=== PATIENT | male | born 1965 | race Caucasian/White ===

== ENCOUNTER 2019-09-28 18:49 | Observation (INO) ==
[2019-09-28] MEDS ORDERED: SODIUM CHLORIDE 0.9% 1000ML 2,000 ML IV ONE (19:03)
--- NOTE | 2019-09-28 19:19 | Emergency Department Note ---
Impression & Plan Appendicitis, Abdominal pain, Leukocytosis ED Provider Note NAME: JAMIE CORDOVA AGE: 53 SEX: M : 1965 ARRIVES VIA: Walk-In INFORMANT: Patient ED PROVIDER(S): Joseph Hogue DO CHIEF COMPLAINT: Right lower quadrant abdominal pain HPI: Patient is a 53-year-old male with a past medical history of high cholesterol that presents the ER for right lower quadrant abdominal pain. Pain started last night at 12 AM. He notes it stays in the right lower quadrant and radiates a little bit posteriorly. Currently describes the pain as sharp and stabbing and 9 out of 10. No other exacerbating or remitting factors. Patient has never had this before. No previous abdominal surgeries. Denies any dysuria urgency or frequency. Patient notes that over a week ago he had some right shoulder pain when he woke up but it resolved with moving his right shoulder. ROS: See above HPI for pertinent positives & negatives. A total of 10 systems reviewed and were otherwise negative. PAST MEDICAL HISTORY:See Below PAST SURGICAL HISTORY:See Below FAMILY HISTORY:See Below SOCIAL HISTORY:See Below HOME MEDICATIONS:See Below ALLERGIES:See Below VITALS:See Below PHYSICAL EXAMINATION: GENERAL: Sitting up in bed, alert, well appearing, well nourished, no distress, non-toxic EYE EXAM: normal conjunctiva. OROPHARYNX: no exudate, no erythema, lips, buccal mucosa, and tongue normal and mucous membranes are moist NECK: supple, no nuchal rigidity, no adenopathy, non-tender LUNGS: Clear to auscultation. Normal chest wall mechanics HEART: no murmurs, S1 normal and S2 normal ABDOMEN: abdomen soft, tender in right lower quadrant, normo-active bowel sounds, no masses, no rebound or guarding. BACK: Back is symmetrical on inspection and there is no deformity, no midline tenderness, no CVA tenderness. SKIN: no rashes and no bruising UPPER EXTREMITIES: upper extremities are grossly normal. LOWER EXTREMITIES: No pitting edema. NEURO EXAM: Normal sensorium, cranial nerves II-XII grossly intact, normal speech, no gross weakness of arms, no gross weakness of legs. MEDICAL DECISION MAKING: Patient is a 53-year-old male that presents the ER for right lower quadrant pain that has been present for the past 24 hours. Not been eating and drinking as much as usual. On exam he is acutely tender in the right lower quadrant. IV was established blood work was obtained and shows mild leukocytosis 12,000. No significant anemia. BMP with mild hypokalemia. LFTs bilirubin and troponin was negative. Lipase unremarkable. UA was negative. CT abdomen pelvis shows acute appendicitis. Patient was given IV fluids as well as cefoxitin 2 g IV. Discussed with general surgery and patient was admitted and taken to the OR for acute appendicitis. Triage Nursing notes reviewed. Prior medical records reviewed Vital Signs: reviewed and remarkable for tachycardia Differential diagnosis: Differential diagnoses includes but is not limited to gastritis, peptic ulcer disease, GERD, gallbladder disease, pancreatitis, small bowel obstruction, acute coronary syndrome, pericarditis, ischemic bowel, irritable bowel disease, irritable bowel syndrome, appendicitis, diverticulitis, malignancy, hernia, urinary tract infection, torsion, perforation, trauma, infectious. ER treatment provided: See below Diagnostics interpreted by me: ECG: Sinus rhythm rate 85 Normal axis No PVCs Normal QTC Cardiac Monitoring: An order was placed for continuous cardiac monitoring. The monitor shows a rate of 93 with sinus rhythm. Laboratory studies: As stated above and show below. Imaging studies: CT abdomen pelvis shows acute appendicitis. Consultation(s): Discussed with general surgery. ED COURSE: Procedures: none Critical Care: None Past Med/Surg History Medical History Morbid obesity Surgical History S/P inguinal hernia repair Social History Feels Safe at Home: Yes Smoking Status: Never smoker Allergies Allergies Allergy/AdvReac Type Severity Reaction Status Date / Time No Known Allergies Allergy Unknown ` Verified 09/28/19 19:20 Home Meds Home Medications Medication Instructions Recorded Confirmed No Known Home Medications 09/28/19 09/28/19 Results & Data (ED) Vital Signs Vital Signs - 24 hr 09/28/19 18:50 09/28/19 20:00 09/28/19 21:12 Temperature 37 C Temperature Source Oral Pulse Rate 105 H 85 Pulse Rate [Apical] 65 Respiratory Rate 19 18 20 Respiratory Depth Normal Blood Pressure 112/71 155/101 H Blood Pressure [Left Arm] 140/86 Blood Pressure Mean 84 Blood Pressure Mean [Left Arm] 104 Blood Pressure Position Sitting Pulse Oximetry 94 96 95 Oxygen Delivery Method Room Air Room Air Sepsis Recent Fever Within 48 Hours No Sepsis Action Taken by Nursing No Action Required Laboratory Data Result diagrams: 09/28/19 19:27 09/28/19 19:27 Lab Results 09/28/19 09/28/19 09/28/19 Range/Units 19:20 19:27 19:27 WBC 12.94 H (4.8-10.8) K/uL RBC 5.11 (4.7-6.1) M/uL Hgb 16.0 (14.0-18.0) g/dL Hct 45.9 (42-52) % MCV 89.8 (80-100) fL MCH 31.3 (25-34) pg MCHC 34.9 (32-36) g/dL RDW Std Deviation 42.6 (36.4-46.3) fL RDW Coeff of Loyd 13.0 (11.5-14.5) % Plt Count 228 (130-400) K/uL MPV 9.9 (7.4-10.4) fL Immature Gran % (Auto) 0.3 % Neut % (Auto) 67.5 % Lymph % (Auto) 19.9 % [place] % (Auto) 11.7 % Eos % (Auto) 0.4 % Baso % (Auto) 0.2 % Immature Gran # (Auto) 0.04 H (0.00-0.02) K/uL Neut # (Auto) 8.74 H (1.4-6.5) K/uL Lymph # (Auto) 2.57 (1.2-3.4) K/uL [place] # (Auto) 1.51 H (0.11-0.59) K/uL Eos # (Auto) 0.05 (0-0.5) K/uL Baso # (Auto) 0.03 (0-0.2) K/uL Sodium 136 (136-145) mmol/L Potassium 3.0 L (3.5-5.1) mmol/L Chloride 101 (98-107) mmol/L Carbon Dioxide 28 (21-32) mmol/L Anion Gap 7.0 (3-11) BUN 13 (7-18) mg/dl Creatinine 0.99 (0.6-1.4) mg/dl Est Cr Clr Drug Dosing 109.3 ml/min Est GFR ( Amer) 99.0 Est GFR (Non-Af Amer) 85.4 BUN/Creatinine Ratio 12.7 (10-20) Glucose 122 H (70-99) mg/dl Calcium 9.0 (8.5-10.1) mg/dl Total Bilirubin 0.9 (0.2-1) mg/dl AST 16 (15-37) U/L ALT 32 (12-78) U/L Alkaline Phosphatase 74 (45-117) U/L Troponin I (0-0.045) ng/ml Total Protein 7.8 (6.4-8.2) gm/dl Albumin 4.0 (3.4-5.0) gm/dl Globulin 3.8 (2.5-4.0) gm/dl Albumin/Globulin Ratio 1.1 (0.9-2) Lipase 99 (73-393) U/L Urine Color Dark Yellow Urine Appearance Clear (Clear) Urine pH 5.0 (4.5-7.5) Ur Specific [place] 1.030 (1.000-1.030) Urine Protein 1+ H (Negative) Urine Glucose (UA) Negative (Negative) Urine Ketones Trace H (Negative) Urine Blood Negative (Negative) Urine Nitrite Negative (Negative) Urine Bilirubin Negative (Negative) Urine Urobilinogen Negative (Negative) Ur Leukocyte Esterase Negative (Negative) Urine WBC (Auto) 1-5 (0-5) /hpf Urine RBC (Auto) 0-4 (0-4) /hpf U Hyaline Cast (Auto) 1-5 (0-5) /lpf U Epithel Cells (Auto) 5-10 H (0-5) /lpf Urine Bacteria (Auto) Negative (Negative) 09/28/19 Range/Units 19:27 WBC (4.8-10.8) K/uL RBC (4.7-6.1) M/uL Hgb (14.0-18.0) g/dL Hct (42-52) % MCV (80-100) fL MCH (25-34) pg MCHC (32-36) g/dL RDW Std Deviation (36.4-46.3) fL RDW Coeff of Loyd (11.5-14.5) % Plt Count (130-400) K/uL MPV (7.4-10.4) fL Immature Gran % (Auto) % Neut % (Auto) % Lymph % (Auto) % [place] % (Auto) % Eos % (Auto) % Baso % (Auto) % Immature Gran # (Auto) (0.00-0.02) K/uL Neut # (Auto) (1.4-6.5) K/uL Lymph # (Auto) (1.2-3.4) K/uL [place] # (Auto) (0.11-0.59) K/uL Eos # (Auto) (0-0.5) K/uL Baso # (Auto) (0-0.2) K/uL Sodium (136-145) mmol/L Potassium (3.5-5.1) mmol/L Chloride (98-107) mmol/L Carbon Dioxide (21-32) mmol/L Anion Gap (3-11) BUN (7-18) mg/dl Creatinine (0.6-1.4) mg/dl Est Cr Clr Drug Dosing ml/min Est GFR ( Amer) Est GFR (Non-Af Amer) BUN/Creatinine Ratio (10-20) Glucose (70-99) mg/dl Calcium (8.5-10.1) mg/dl Total Bilirubin (0.2-1) mg/dl AST (15-37) U/L ALT (12-78) U/L Alkaline Phosphatase (45-117) U/L Troponin I < 0.015 (0-0.045) ng/ml Total Protein (6.4-8.2) gm/dl Albumin (3.4-5.0) gm/dl Globulin (2.5-4.0) gm/dl Albumin/Globulin Ratio (0.9-2) Lipase (73-393) U/L Urine Color Urine Appearance (Clear) Urine pH (4.5-7.5) Ur Specific [place] (1.000-1.030) Urine Protein (Negative) Urine Glucose (UA) (Negative) Urine Ketones (Negative) Urine Blood (Negative) Urine Nitrite (Negative) Urine Bilirubin (Negative) Urine Urobilinogen (Negative) Ur Leukocyte Esterase (Negative) Urine WBC (Auto) (0-5) /hpf Urine RBC (Auto) (0-4) /hpf U Hyaline Cast (Auto) (0-5) /lpf U Epithel Cells (Auto) (0-5) /lpf Urine Bacteria (Auto) (Negative) Administered Medications Ioversol (Optiray 320 100ml) 93 ml IV ONCE PRN PRN Reason: Interaction Checking Stop: 10/02/19 20:14 Last Admin: 09/28/19 20:16 Dose: 93 ml Documented by: [id number] Discontinued Medications Sodium Chloride (Nss 1000ml) 2,000 mls @ 999 mls/hr IV .Q2H1M ONE Stop: 09/28/19 21:03 Last Admin: 09/28/19 19:32 Dose: 999 mls/hr Documented by: [id number] Cefoxitin Sodium (Mefoxin) 2,000 mg in 60 mls @ 100 mls/hr IV NOW STA Stop: 09/28/19 21:20 Last Admin: 09/28/19 20:52 Dose: 100 mls/hr Documented by: [id number] Discharge Plan Visit Data Chief Complaint: Hip Pain Stated Complaint: PAINS IN RT SIDE ED Provider: Joseph Hogue Discharge Problem: Appendicitis, Abdominal pain, Leukocytosis Discharge Instructions Interventions: ED Discharge Assessment Last Done: 09/28/19 21:12 Forms Stand Alone Forms: Cruise Compare Prescriptions Prescriptions: No Action No Known Home Medications RF: 0 Referrals Referrals: Wolf Garduno [Primary Care Provider] - Discharge Problem: Appendicitis Qualifiers: Appendicitis type: acute appendicitis Acute appendicitis type: unspecified acute appendicitis type Qualified Code(s): K35.80 - Unspecified acute appendicitis Abdominal pain Qualifiers: Abdominal location: unspecified location Qualified Code(s): R10.9 - Unspecified abdominal pain Leukocytosis Qualifiers: Leukocytosis type: unspecified Qualified Code(s): D72.829 - Elevated white blood cell count, unspecified
[2019-09-28 19:44] LABS: Basophils # (auto) 0.03 K/uL (0-0.2); Basophils % (auto) 0.2 %; Eosinophils # (auto) 0.05 K/uL (0-0.5); Eosinophils % (auto) 0.4 %; Hematocrit (blood only) 45.9 % (42-52); Immature Granulocytes # (auto) 0.04 K/uL (0.00-0.02); Immature Granulocytes % (auto) 0.3 %; Lymphocytes # (auto) 2.57 K/uL (1.2-3.4); Lymphocytes % (auto) 19.9 %; Mean Corpuscular Hemoglobin 31.3 pg (25-34); Mean Corpuscular Hgb Conc 34.9 g/dL (32-36); Mean Corpuscular Volume 89.8 fL (80-100); Mean Platelet Volume 9.9 fL (7.4-10.4); Monocytes # (auto) 1.51 K/uL (0.11-0.59); Monocytes % (auto) 11.7 %; Neutrophils # (auto) 8.74 K/uL (1.4-6.5); Neutrophils % (auto) 67.5 %; Platelet Count 228 K/uL (130-400); RDW Standard Deviation 42.6 fL (36.4-46.3); Red Blood Count 5.11 M/uL (4.7-6.1); White Blood Count 12.94 K/uL (4.8-10.8)
[2019-09-28 19:46] LABS: Appearance Urine Clear (Clear); Bacteria Urine Automated Negative (Negative); Blood Urine Negative (Negative); Color Urine Dark Yellow; Glucose Urine UA Negative (Negative); Ketones Urine Trace (Negative); Leukocyte Esterase Urine Negative (Negative); Nitrite Urine Negative (Negative); Protein Urine 1+ (Negative); RBC Urine Automated 0-4 /hpf (0-4); Urobilinogen Urine Negative (Negative)
[2019-09-28 20:00] LABS: BUN Creatinine Ratio 12.7 (10-20); Creatinine Clr Calc Pharmacy 109.3 ml/min; Est GFR (Non-African American) 85.4
[2019-09-28 20:03] LABS: Albumin Globulin Ratio 1.1 (0.9-2); Bilirubin,Total 0.9 mg/dl (0.2-1); Globulin 3.8 gm/dl (2.5-4.0); Total Protein 7.8 gm/dl (6.4-8.2)
[2019-09-28 20:03] LABS: Bilirubin Urine Negative (Negative); Ictotest Urine Negative (Negative)
[2019-09-28] MEDS ORDERED: IOVERSOL 100ml IV PRN (20:15)
--- NOTE | 2019-09-28 20:42 | CT Scan Report ---
CT OF THE ABDOMEN AND PELVIS WITH CONTRAST CLINICAL HISTORY: Right lower quadrant abdominal pain. COMPARISON STUDY: Right inguinal ultrasound February 20, 2015. TECHNIQUE: Following IV administration of 93 mL of Optiray-320, axial images of the abdomen and pelvi s were obtained from the lung bases to the proximal femurs. Images were reviewed in the axial, sagitt al, and coronal planes. IV contrast was administered without complication. Automated exposure contro l was utilized for the study. A dose lowering technique was utilized adhering to the principles of A RUTH. CT DOSE: 1870.14 mGy.cm FINDINGS: Subpleural opacities within the lower lungs reflect atelectasis. There is probable fatty in filtration of the liver. A 1.1 cm right hepatic lobe cyst is noted. The spleen, adrenal glands and pa ncreas are normal. There is no biliary or pancreatic ductal dilatation. There is no peripancreatic or pericholecystic infiltration. No pneumatosis, free air or portal venous gas is present. Incidental n ote is made of a left sided IVC. Major vasculature is patent. There is no evidence for a bowel obstru ction. The appendix is dilated, measuring 1.2 cm in caliber. There is moderate periappendiceal infilt ration. No free air or abscess is present. The appendix is located posterior to the ascending colon, within the mid abdomen. The tip positioned adjacent to the inferior right hepatic lobe. A fat contain ing umbilical hernia is noted. Right inguinal hernia repair with mesh is present. Colonic diverticulo sis is noted without evidence for acute diverticulitis. There is no hydronephrosis. There are no susp icious osseous lesions. IMPRESSION: 1. Findings consistent with acute appendicitis. Moderate periappendiceal infiltration. No free air or abscess. Appendix located within the right mid abdomen, posterior to the ascending colon and adjacen t to the inferior right hepatic lobe. 2. Fat-containing umbilical hernia. 3. Colonic diverticulosis without evidence for acute diverticulitis. 4. Probable fatty infiltration of the liver. ACT 112: Negative or not required by law. Electronically signed by: Min Duran M.D. 09/28/2019 8:41 PM
[2019-09-28] MEDS ORDERED: cefOXitin 2,000 MG/60 ML BAG IV STA (20:45)
[2019-09-28] MEDS ORDERED: BUPIVACAINE/EPINEPHRINE 0.5% MPF 1:200,000 10 ML VIAL ONE (20:57)
[2019-09-28] MEDS ORDERED: ONDANSETRON INJ 2 MG/ML 2 ML VIAL IV PRN ×2 (20:59→21:49)
[2019-09-28] MEDS ORDERED: ePHEDrine sulfate 50 MG/ML AMP IV PRN (20:59)
[2019-09-28] MEDS ORDERED: fentaNYL citrate 100 MCG/2 ML VIAL IV PRN (20:59)
[2019-09-28] MEDS ORDERED: ATROPINE SULFATE 0.1 MG/ML 10ML SYR IV PRN (20:59)
--- NOTE | 2019-09-28 21:30 | Anesthesiology Consultation ---
Date of Service September 28, 2019 Assessment & Plan (1) Encounter for pre-operative examination: Chart Review Chart Review: Acceptable Risk for Surgery Consults Requested none ASA [id number] Proposed Anesthesia Anesthesia Type: General Risk / Benefits Reviewed With: PT / POA / Parent / Guardian, Accepts Plan and Informed Consent Obtained History Surgery Operation Date: 09/28/19 21:30 Proposed Procedures p Laparoscopic Appendectomy - Krzysztof Stevenson MD Height/Weight Height: 5 ft 9 in Weight: 123 kg Allergies Allergy/AdvReac Type Severity Reaction Status Date / Time No Known Allergies Allergy Unknown ` Verified 09/28/19 19:20 Medications Home Medications Medication Instructions Recorded Confirmed Last Taken No Known Home Medications 09/28/19 09/28/19 Unknown Active Medications Generic Name Dose Route Start Last Admin Trade Name Freq PRN Reason Stop Dose Admin Ioversol 93 ml 09/28/19 20:15 09/28/19 20:16 Optiray 320 100ml IV 10/02/19 20:14 93 ml ONCE PRN Administration Interaction Checking NPO Date Last Intake of Fluids: 09/28/19 Time Last Intake of Fluids: 16:30 Date Last Intake of Solids: 09/28/19 Time Last Intake of Solids: 14:00 Past Medical History Medical History Morbid obesity Exercise / Class Metabolic Activity II 4-5 Yardwork/Stairs/Walk up hill Past Surgical History Surgical History S/P inguinal hernia repair Past Anesthesia History No Hx of Anesthesia Complications and No Family Hx of Anesthesia Complications History of PONV No Hx of PONV and No Hx of Motion Sickness Social History Smoking Status: Never smoker Physical Exam Vital Signs Last Vital Signs Temp 98.6 F 09/28/19 18:50 Pulse 85 09/28/19 21:12 Resp 20 09/28/19 21:12 BP 155/101 H 09/28/19 21:12 Pulse Ox 95 09/28/19 21:12 ENMT Mouth: no dentition abnormality Thyromental Distance: > or= 3.5 Finger Breadths Mallampati Class: I Neck normal visual inspection Respiratory normal respiratory effort Auscultation: lungs clear to auscultation bilaterally Cardiovascular Rate/Rhythm: regular rate and regular rhythm Testing Laboratory Results 09/28/19 19:27 09/28/19 19:27 Urine Color Dark Yellow 09/28/19 19:20 Urine Appearance Clear (Clear) 09/28/19 19:20 Urine pH 5.0 (4.5-7.5) 09/28/19 19:20 Ur Specific [place] 1.030 (1.000-1.030) 09/28/19 19:20 Urine Protein 1+ (Negative) H 09/28/19 19:20 Urine Glucose (UA) Negative (Negative) 09/28/19 19:20 Urine Ketones Trace (Negative) H 09/28/19 19:20 Urine Nitrite Negative (Negative) 09/28/19 19:20 Ur Leukocyte Esterase Negative (Negative) 09/28/19 19:20 Urine WBC (Auto) 1-5 /hpf (0-5) 09/28/19 19:20 Urine RBC (Auto) 0-4 /hpf (0-4) 09/28/19 19:20 U Hyaline Cast (Auto) 1-5 /lpf (0-5) 09/28/19 19:20 U Epithel Cells (Auto) 5-10 /lpf (0-5) H 09/28/19 19:20 Urine Bacteria (Auto) Negative (Negative) 09/28/19 19:20
--- NOTE | 2019-09-28 21:31 | History & Physical Report ---
Date of Service September 28, 2019 Assessment & Plan (1) Appendicitis: IV mefoxin IVF NPO to OR for lap appendectomy Present on Admission?: Yes History of Present Illness Primary Care Provider: Wolf Garduno This is a 53-year-old male with right lower quadrant abdominal pain since last night. His pain started last night at 12 AM with nausea but no vomiting. He notes it stays in the right lower quadrant and radiates a little bit posteriorly. The pain as sharp and stabbing. No chnage in bowel habits. Previous hernia repair and denies any dysuria, urgency, fevers, chills or frequency. Allergies Allergy/AdvReac Type Severity Reaction Status Date / Time No Known Allergies Allergy Unknown ` Verified 09/28/19 19:20 Home Medications Home Medications Medication Instructions Recorded Confirmed Type No Known Home Medications 09/28/19 09/28/19 History Past Med/Surg History Medical History (Updated 09/28/19 @ 21:33 by Krzysztof Stevenson MD) Morbid obesity Surgical History (Updated 09/28/19 @ 21:27 by Edwin Henriquez DO) S/P inguinal hernia repair Social History Feels Safe at Home: Yes Smoking Status: Never smoker Review of Systems no fever and no chills no problem reported no cough and no dyspnea no chest pain + abdominal pain and + nausea; no vomiting no dysuria and no difficulty urinating no back pain and no neck pain no rash no problem reported no problem reported no problem reported no problem reported Physical Exam Constitutional: well developed and well nourished Neck: trachea midline; neck nontender Respiratory: normal respiratory effort; no respiratory distress and no labored breathing Cardiovascular: Rate/Rhythm: regular rate and regular rhythm Gastrointestinal (Abdomen): Inspection/Auscultation: abdomen normal to inspection; + abnormal bowel sounds Percussion/Palpation: + abdomen tender, + guarding and + hernia (umbilical); abdomen not rigid ASA Classification ASA ASA2E Results & Data Vital Signs (Past 12 Hours) Vital Signs Temp Pulse Pulse Resp BP BP Pulse Ox 09/28/19 21:12 85 20 155/101 H 95 09/28/19 20:00 65 18 140/86 96 09/28/19 18:50 37 C 105 H 19 112/[address] OF THE ABDOMEN AND PELVIS WITH CONTRAST CLINICAL HISTORY: Right lower quadrant abdominal pain. COMPARISON STUDY: Right inguinal ultrasound February 20, 2015. TECHNIQUE: Following IV administration of 93 mL of Optiray-320, axial images of the abdomen and pelvis were obtained from the lung bases to the proximal femurs. Images were reviewed in the axial, sagittal, and coronal planes. IV contrast was administered without complication. Automated exposure control was utilized for the study. A dose lowering technique was utilized adhering to the principles of ALARA. CT DOSE: 1870.14 mGy.cm FINDINGS: Subpleural opacities within the lower lungs reflect atelectasis. There is probable fatty infiltration of the liver. A 1.1 cm right hepatic lobe cyst is noted. The spleen, adrenal glands and pancreas are normal. There is no biliary or pancreatic ductal dilatation. There is no peripancreatic or pericholecystic infiltration. No pneumatosis, free air or portal venous gas is present. Incidental note is made of a left sided IVC. Major vasculature is patent. There is no evidence for a bowel obstruction. The appendix is dilated, measuring 1.2 cm in caliber. There is moderate periappendiceal infiltration. No free air or abscess is present. The appendix is located posterior to the ascending colon, within the mid abdomen. The tip positioned adjacent to the inferior right hepatic lobe. A fat containing umbilical hernia is noted. Right inguinal hernia repair with mesh is present. Colonic diverticulosis is noted without evidence for acute diverticulitis. There is no hydronephrosis. There are no suspicious osseous lesions. IMPRESSION: 1. Findings consistent with acute appendicitis. Moderate periappendiceal infiltration. No free air or abscess. Appendix located within the right mid abdomen, posterior to the ascending colon and adjacent to the inferior right hepatic lobe. 2. Fat-containing umbilical hernia. 3. Colonic diverticulosis without evidence for acute diverticulitis. 4. Probable fatty infiltration of the liver. Code Status & VTE Plan Code Status Full VTE Prophylaxis Plan VTE Prophylaxis will be ordered: Yes
[2019-09-28] MEDS ORDERED: fentaNYL citrate 100 MCG/2 ML VIAL ONE ×3 (21:38→22:20)
[2019-09-28] MEDS ORDERED: MoRPHine SULFATE 2 MG/ML CARP IV PRN (21:49)
[2019-09-28] MEDS ORDERED: MoRPHine SULFATE 4 MG/ML 1 ML CARP\\VIAL IV PRN (21:49)
[2019-09-28] MEDS ORDERED: OXYCODONE/ACETAMINOPHEN 5mg/325mg TAB PO PRN (21:49)
[2019-09-28] MEDS ORDERED: IBUPROFEN 200 MG TAB PO PRN (21:49)
[2019-09-28] MEDS ORDERED: MoRPHine SULFATE 10 MG/ML CARP/VIAL IV PRN (21:49)
[2019-09-28] MEDS ORDERED: PROMETHAZINE HCL 25 MG in SODIUM CHLORIDE 0.9% 50 ML IV PRN (21:49)
[2019-09-28] MEDS ORDERED: ACETAMINOPHEN 325 MG TAB PO PRN (21:49)
[2019-09-28] MEDS ORDERED: PROPOFOL IV EMULSION 10 MG/ML 20 ML VIAL IV ONE (22:10)
[2019-09-28] MEDS ORDERED: LIDOCAINE HCL 2% 2 ML VIAL/AMP(20MG/ML) INFIL ONE (22:10)
[2019-09-28] MEDS ORDERED: ONDANSETRON INJ 2 MG/ML 2 ML VIAL ONE (22:10)
[2019-09-28] MEDS ORDERED: SUCCINYLCHOLINE CHLORIDE 20 MG/ML 10 ML VIAL ONE (22:10)
--- NOTE | 2019-09-28 23:05 | Post Operative Brief Note ---
Immediate Post Op Note v1 Date of Surgery September 28, 2019 Pre & Post Diagnosis Operation Date: 09/28/19 21:30 Pre-Op Diagnosis: Acute Appendicitis Post-Op Diagnosis: Acute Appendicitis with Phlegmon I identified the patient and participated in the time-out.: Yes Procedure Operation Date: 09/28/19 21:30 Actual Procedures p Laparoscopic Appendectomy(Not Applicable) - Krzysztof Stevenson MD Surgeon Krzysztof Stevenson MD [place] none Estimated Blood Loss 70 Findings Consistent with Post-Op Diagnosis Drains Adam Drain (19fr with 100cc bulb; midline lower quadrant.)
[2019-09-28] MEDS ORDERED: ROCURONIUM BROMIDE 10 MG/ML 5 ML VIAL ONE (23:20)
--- NOTE | 2019-09-28 23:38 | Anesthesiology Progress Note ---
Date of Service September 28, 2019 Anesthesia Post Procedure Vital Signs Vital Signs: Temp Pulse Pulse Resp BP BP Pulse Ox 09/28/19 21:12 85 20 155/101 H 95 09/28/19 20:00 65 18 140/86 96 09/28/19 18:50 98.6 F 105 H 19 112/71 94 Pain Intensity Abdomen: Pain Intensity: 8 Transfer of Care Handoff Completed per policy Notes Mental Status: alert / awake / arousable and participated in evaluation Patient Amnestic to Procedure: Yes Nausea / Vomiting: adequately controlled Pain: adequately controlled Airway Patency, RR, SpO2: stable & adequate BP & HR: stable & adequate Hydration State: stable & adequate Anesthetic Complications: no major complications apparent and Pt Satisfied with anesthetic care
[2019-09-29] MEDS: LACTATED RINGER'S 1,000 ML IV SCH ×3 (00:51→17:45)
--- NOTE | 2019-09-29 01:43 | Operative Report (OR) ---
DATE OF OPERATION: 09/28/2019 PREOPERATIVE DIAGNOSIS: Acute appendicitis. POSTOPERATIVE DIAGNOSIS: Acute appendicitis with appendiceal phlegmon. PROCEDURE PERFORMED: Laparoscopic appendectomy. SURGEON: Krzysztof Stevenson MD [employer] C[employer]TING MACHINE OPERATOR: None. ESTIMATED BLOOD LOSS: 70 mL. ANESTHESIA: General endotracheal with 0.5% Marcaine with epinephrine local. DRAINS: Adam drain left in the right lower quadrant. INDICATION FOR PROCEDURE: This is a 53-year-old white male who came in with acute abdominal pain. Had a CT scan consistent with acute appendicitis. He had tenderness in his right lower quadrant. He was begun on IV Mefoxin and consented for laparoscopic appendectomy. SPECIMENS: Appendix sent to pathology. DESCRIPTION OF PROCEDURE: The patient was taken to the OR and underwent excellent endotracheal anesthesia under the new COVID protocol. His abdomen was prepped and draped in normal sterile fashion. Transverse supraumbilical incision was made above obvious umbilical hernia. Veress needle was inserted. Good pneumoperitoneum was achieved to 15 mmHg pressure. A visualized 11 port was placed. A 5 suprapubic, a 5 right upper quadrant, and a 12 left lower quadrant port was placed in normal fashion. The patient was placed in head down and rolled to the left. He had a large abdomen with a lot of intra-abdominal fat. His cecum was identified and base of the appendix was identified. It was tethered down into the right lower quadrant. There was no abscess. There was no perforation, but this was not freely mobile. With tension placed on the cecum, attention was turned to opening up the mesoappendix just at the base of the appendix. A window was created using a Harmonic scalpel. A ANGÉLICA stapler was then used to transect the appendix at its base. With the base of the appendix placed on tension, dissection was taken down to free up the appendix, which appeared to be a fairly significant phlegmon. Once again, there was no perforation or no abscess. Using a Harmonic scalpel to take down the mesoappendix and the adhesions, attention was placed on the appendix. Here the appendix broke into an Endobag, it was used to bring out the proximal portion of the normal appearing appendix. This was placed in the back table. Once again, tension placed on the appendiceal remnant. This was then freed using the Harmonic scalpel. Another Endobag was then used to bring this out through the left lower quadrant port. The bag broke and the appendix became lodged into the port site. This was extended with an incision and this was removed. The port was replaced. The abdomen was then irrigated out with 2 liters of saline. There were no obvious bleeders. The staple line appeared to be normal. Because of the break in the appendix, a drain will be left and this was placed in the right lower quadrant and brought out through the suprapubic incision. This was secured with 3-0 nylon. The ports were then removed. The pneumoperitoneum was decompressed. The left lower quadrant incision was then irrigated out with more saline. A 0.5% Marcaine was then used to create a field block in the incisions. A 4-0 Vicryl was used to close the right upper quadrant and the supraumbilical incision. The left lower quadrant was partially closed and then iodoform gauze was packed. Sterile dressings were applied. The patient tolerated the procedure well with no complications, extubated in the OR and then will be held in the OR using the COVID protocol. The patient tolerated the procedure without complications, will be sent to postop recovery area for a period of observation, and will be sent to the floor once he meets criteria. I attest to the content of the Intraoperative Record and any orders documented therein. Any exceptions are noted below. JACINTA
[2019-09-29] MEDS: cefOXitin 2,000 MG in DEXTROSE 5% 50 ML IV SCH ×3 (05:50→21:37)
[2019-09-29] MEDS: OXYCODONE/ACETAMINOPHEN 5mg/325mg TAB PO PRN ×3 (05:58→19:53)
[2019-09-29] MEDS ORDERED: COUGH DROP (SUGAR FREE) LOZ 24 LOZ/1 BOX BUCCAL ONE (05:58)
--- NOTE | 2019-09-29 09:23 | Surgery Progress Note ---
Date of Service September 29, 2019 Assessment & Plan (1) Appendicitis: Postoperative day 0 status post laparoscopic appendectomy Vital signs are stable Encouraged p.o. intake Encouraged ambulation Continue CALVIN and IV antibiotics for now Lexus has 390 cc out since surgery and appears serosanguineous Subjective Postoperative day 0 status post laparoscopic appendectomy Has mild intermittent pain Denies nausea and vomiting Tolerated diet Ambulating a little bit Physical Exam Gastrointestinal (Abdomen): Inspection/Auscultation: normal bowel sounds; abdomen not distended Percussion/Palpation: + abdomen tender (Lower abdomen mild) and abdomen soft Results & Data Vital Signs (Past 12 Hours) Vital Signs Temp Pulse Pulse Resp BP Pulse Ox 09/29/19 07:31 36.8 C 80 18 128/74 95 09/29/19 03:32 36.9 C 81 18 101/65 90 09/29/19 02:40 37.2 C 76 16 114/72 94 09/29/19 01:40 37.1 C 84 16 117/73 91 09/29/19 01:15 36.9 C 18 148/92 H 96 09/29/19 00:22 37.4 C 89 18 115/74 92 09/29/19 00:17 88 20 111/72 91 09/29/19 00:12 90 20 121/77 91 09/29/19 00:07 37.5 C 90 20 118/72 91 09/29/19 00:02 91 H 20 125/78 92 09/28/19 23:57 37.4 C 88 22 124/71 90 09/28/19 23:47 37.4 C 83 20 131/78 93 09/28/19 23:42 37.4 C 83 20 130/88 93 09/28/19 23:32 37.4 C 20 145/82 H 09/28/19 23:27 37.9 C H 79 20 143/95 H 95 (1) Appendicitis Acute appendicitis type: unspecified acute appendicitis type Appendicitis t ype: acute appendicitis Qualified Code(s): K35.80 - Unspecified acute appendicitis
--- NOTE | 2019-09-29 10:42 | Anesthesiology Progress Note ---
Date of Service September 29, 2019 Anesthesia Post Procedure Vital Signs Vital Signs: Temp Pulse Pulse Pulse Resp BP BP 09/29/19 07:31 36.8 C 80 18 128/74 09/29/19 03:32 36.9 C 81 18 101/65 09/29/19 02:40 37.2 C 76 16 114/72 09/29/19 01:40 37.1 C 84 16 117/73 09/29/19 01:15 36.9 C 18 148/92 H 09/29/19 00:22 37.4 C 89 18 115/74 09/29/19 00:17 88 20 111/72 09/29/19 00:12 90 20 121/77 09/29/19 00:07 37.5 C 90 20 118/72 09/29/19 00:02 91 H 20 125/78 09/28/19 23:57 37.4 C 88 22 124/71 09/28/19 23:47 37.4 C 83 20 131/78 09/28/19 23:42 37.4 C 83 20 130/88 09/28/19 23:32 37.4 C 20 145/82 H 09/28/19 23:27 37.9 C H 79 20 143/95 H 09/28/19 21:12 85 20 155/101 H 09/28/19 20:00 65 18 140/86 09/28/19 18:50 37 C 105 H 19 112/71 Pulse Ox 09/29/19 07:31 95 09/29/19 03:32 90 09/29/19 02:40 94 09/29/19 01:40 91 09/29/19 01:15 96 09/29/19 00:22 92 09/29/19 00:17 91 09/29/19 00:12 91 09/29/19 00:07 91 09/29/19 00:02 92 09/28/19 23:57 90 09/28/19 23:47 93 09/28/19 23:42 93 09/28/19 23:32 09/28/19 23:27 95 09/28/19 21:12 95 09/28/19 20:00 96 09/28/19 18:50 94 Pain Intensity Abdomen: Pain Intensity: 4 Notes Mental Status: alert / awake / arousable Patient Amnestic to Procedure: Yes Nausea / Vomiting: adequately controlled Pain: adequately controlled Airway Patency, RR, SpO2: stable & adequate BP & HR: stable & adequate Hydration State: stable & adequate Anesthetic Complications: no major complications apparent and Pt Satisfied with anesthetic care
--- NOTE | 2019-09-29 14:01 | Electrocardiogram Report ---
Test Reason : Blood Pressure : / mmHG Vent. Rate : 085 BPM Atrial Rate : 085 BPM P-R Int : 156 ms QRS Dur : 084 ms QT Int : 378 ms P-R-T Axes : 016 -10 -10 degrees QTc Int : 449 ms Normal sinus rhythm Moderate voltage criteria for LVH, may be normal variant Borderline ECG When compared with ECG of 29-MAY-2014 02:05, Inverted T waves have replaced nonspecific T wave abnormality in Inferior leads Confirmed by Steven Caceres ([id number]) on 09/29/2019 2:01:35 PM Referred By: REFERRED SELF Confirmed By:Steven Caceres
[2019-09-30] MEDS: LACTATED RINGER'S 1,000 ML IV SCH (04:01)
[2019-09-30] MEDS: cefOXitin 2,000 MG in DEXTROSE 5% 50 ML IV SCH (05:48)
--- NOTE | 2019-09-30 09:37 | Surgery Progress Note ---
Date of Service September 30, 2019 Assessment & Plan (1) Appendicitis: Postoperative day #1 status post laparoscopic appendectomy Doing much better today Can discharge to home We will send home on Augmentin Discussed postoperative activity restrictions Discontinue German-Wheat prior to discharge Subjective Feels better today Ambulating Tolerated regular diet without nausea or vomiting Passed flatus Incisional pain only German-Wheat had 30 cc, 30 cc, 35 cc out over the last 3 shifts and it serosanguineous Physical Exam Gastrointestinal (Abdomen): Inspection/Auscultation: normal bowel sounds and + abdominal surgical incision (Clean, dry and intact and without erythema); abdomen not distended Percussion/Palpation: + abdomen tender (Incisional only) and abdomen soft; no abdominal mass Results & Data Vital Signs (Past 12 Hours) Vital Signs Temp Pulse Resp BP Pulse Ox 09/30/19 07:42 37.1 C 88 18 129/84 91 09/29/19 23:51 37.3 C 09/29/19 23:06 37.9 C H 90 16 106/64 93 (1) Appendicitis Acute appendicitis type: unspecified acute appendicitis type Appendicitis type: acute appendicitis Qualified Code(s): K35.80 - Unspecified acute appendicitis
--- NOTE | 2019-10-08 11:17 | Discharge Summary (DS) ---
SURGEON: Krzysztof Stevenson MD. DIAGNOSIS: Acute appendicitis with phlegmon. HISTORY OF PRESENT ILLNESS: This is a 53-year-old male who came in with right lower quadrant pain. He was evaluated in the ED, was shown by CT scan to have an acute appendicitis. He will be taken to the OR for laparoscopic appendectomy. HOSPITAL COURSE: The patient was taken straight from the ED to the OR and underwent excellent general endotracheal anesthesia. Laparoscopic appendectomy was performed for acute appendicitis with phlegmon. This was done laparoscopically. He was sent to the floor with the drain. He was monitored for a few days on IV antibiotics and drain management. Drain was removed and he was discharged to home on postoperative day #1. DISCHARGE MEDICATIONS: Ibuprofen p.r.n. and Percocet p.r.n. FOLLOW UP: In [address] Stevenson in the clinic. DIET: Regular as tolerated. ACTIVITIES: No strenuous activity for 3-4 weeks.
== END 2019-09-30 10:31 | disposition home or self-care (01) ==
LOC: 3E 18:49 → ED 18:49 → 3E 21:12